=== PATIENT | female | born 1985 | race Caucasian/White ===

== ENCOUNTER 2019-02-21 18:57 | Emergency (ER) | payer OTHER | END 2019-02-21 22:17 | disposition home or self-care (01) | LOC: JER 18:57 ==

== ENCOUNTER 2019-05-03 09:39 | Emergency (ER) | payer OTHER ==
[2019-05-03 09:52] VITALS: BP 111/56; PULSE 81; TEMP 98.2; BMI 25.8
--- NOTE | 2019-05-03 10:44 | PDOC ---
History of Present Illness - General Chief Complaint: Diarrhea Stated Complaint: 22 W PREG/ BLACK STOOL Time Seen by Provider: 05/03/19 09:57 History Source: Patient Exam Limitations: Language Barrier ([employer] services manager ID#[id number]) Past History - Past Medical History Allergies/Adverse Reactions: Allergies Allergy/AdvReac Type Severity Reaction Status Date / Time ibuprofen Allergy Verified 02/21/19 19:04 Home Medications: Ambulatory Orders Ferrous Sulfate [Iron] 325 mg PO DAILY 05/03/19 Pnv No.95/Ferrous Fum/Folic AC [ Vitamin Tablet] 1 each PO DAILY COPD: No - Immunization History Immunization Up to Date: Yes - Suicide/Smoking/Psychosocial Hx Smoking History: Never smoked Information on smoking cessation initiated: No Hx Alcohol Use: No Drug/Substance Use Hx: No *Physical Exam - Vital Signs Last Vital Signs Temp Pulse Resp BP Pulse Ox 98.2 F 81 16 111/56 L 99 05/03/19 09:47 05/03/19 09:47 05/03/19 09:47 05/03/19 09:47 05/03/19 09:47 - Physical Exam General Appearance: No: Apparent Distress Respiratory/Chest: positive: Lungs Clear, Normal Breath Sounds. negative: Respiratory Distress Cardiovascular: positive: Regular Rhythm, Regular Rate, S1, S2. negative: Murmur Gastrointestinal/Abdominal: positive: Soft, Other (gravid uterus). negative: Tender Neurologic: positive: Alert, Normal Mood/Affect Medical Decision Making - Medical Decision Making 34 y/o F currently 21 weeks presents with intermittent dark/black stools for around 3 months since starting her iron pills. stools are not always black; for instance, yesterday, her stools were normal in color. was never told iron pills could change color of stools. never told her PMD or OB doctor (Dr. Sincere Pratt) because she thought it was not nothing to worry about. However, her sister told her to get evaluated. Last OB check up was yesterday. Also with slight lower abdominal discomfort x 3 days. Denies fever, sob, cp, vomiting, vaginal bleeding, constipation, diarrhea , bloody stools. Black stool likely related to use of iron pills Patient explained Attempted to reach patient's OB, but unable to reach Will sent to L&D for FHR 05/03/19 10:38 *DC/Admit/Observation/Transfer Diagnosis at time of Disposition: Black stools - Discharge Dispostion Disposition: HOME Condition at time of disposition: Stable Decision to Admit order: No - Referrals - Patient Instructions Additional Instructions: Thank you for choosing [facility]. It was a pleasure taking care of you. Likely your black stools are related to your iron pills Continue follow-up with your [employer] OPERATOR HELPER and primary care doctor Return to the Emergency Department if your symptoms worsen or persist or have other concerning symptoms. - Post Discharge Activity
== END 2019-05-03 11:04 | disposition home or self-care (01) ==
LOC: JERFT 09:39
DX: O26.892 Other specified pregnancy related conditions, second trimester (principal); Z3A.21 21 weeks gestation of pregnancy; R19.5 Other fecal abnormalities
CPT/HCPCS: 99281-25

== ENCOUNTER 2019-06-07 07:47 | Emergency (ER) | payer OTHER ==
[2019-06-07 07:54] VITALS: BMI 27.4
[2019-06-07] MEDS ORDERED: ACETAMINOPHEN 1000 MG/100 ML VIAL (NON FORMULARY) IVPB ONE (08:01)
[2019-06-07] MEDS ORDERED: ACETAMINOPHEN INJECTION 100 ML IVPB ONE (08:16)
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
[2019-06-07 09:12] VITALS: BP 128/64; PULSE 90; TEMP 98.2
== END 2019-06-07 10:35 | disposition home or self-care (01) ==
LOC: JER 07:47
PROC: 3E033NZ Introduction of Analgesics, Hypnotics, Sedatives into Peripheral Vein, Percutaneous Approach (ICD-10-PCS; principal; 2019-06-07)
DX: O26.892 Other specified pregnancy related conditions, second trimester (principal); R10.9 Unspecified abdominal pain; M54.5 Low back pain; V43.64XA Car passenger injured in collision with van in traffic accident, initial encounter; Y92.414 Local residential or business street as the place of occurrence of the external cause; Y93.89 Activity, other specified; Y99.8 Other external cause status; Z3A.26 26 weeks gestation of pregnancy
CPT/HCPCS: 99282-25; J0131

== ENCOUNTER 2022-06-06 19:46 | Emergency (ER) | payer OTHER ==
[2022-06-06 20:08] VITALS: BP 121/78; PULSE 72; RESP 19; TEMP 98.6; BMI 25.6
[2022-06-06] MEDS ORDERED: DIPHTH,PERTUSS(ACELL),TET 0.5 ML DISP.SYRIN IM ONE ×2 (21:32→22:24)
[2022-06-06] MEDS ORDERED: ACETAMINOPHEN 1000 MG/100 ML BAG IVPB ONE (21:32)
[2022-06-06] MEDS ORDERED: ACETAMINOPHEN INJECTION 100 ML IVPB ONE (21:49)
== END 2022-06-06 23:45 | disposition home or self-care (01) ==
LOC: JER 19:46
PROC: 3E0333Z Introduction of Anti-inflammatory into Peripheral Vein, Percutaneous Approach (ICD-10-PCS; principal; 2022-06-06)
PROC: 3E0234Z Introduction of Serum, Toxoid and Vaccine into Muscle, Percutaneous Approach (ICD-10-PCS; 2022-06-06)
DX: S91.331A Puncture wound without foreign body, right foot, initial encounter (principal); W45.0XXA Nail entering through skin, initial encounter
CPT/HCPCS: 36415; 84703; 90471; 90715; 93005; 93010; 96374; 99284-25

== ENCOUNTER 2022-10-31 16:48 | Emergency (ER) | payer OTHER ==
[2022-10-31 17:05] VITALS: BP 118/74; PULSE 86; RESP 18; TEMP 98.1; BMI 25.0
[2022-10-31] MEDS ORDERED: DEXAMETHASONE SOD PHOSPHATE 10 MG/1 ML VIAL IM ONE (19:48)
[2022-10-31] MEDS ORDERED: DEXAMETHASONE SOD PHOSPHATE 10 MG/1 ML VIAL ONE (19:55)
[2022-10-31 20:32] LABS: THROAT:GRP A STREP NOT DETECTED (NOTDETECTED)
== END 2022-10-31 20:33 | disposition home or self-care (01) ==
LOC: JERFT 16:48 → JER 16:48 → JERFT 20:33
PROC: 3E023GC Introduction of Other Therapeutic Substance into Muscle, Percutaneous Approach (ICD-10-PCS; principal; 2022-10-31)
DX: R07.0 Pain in throat (principal)
CPT/HCPCS: 0241U-QW; 87651; 99284-25; J1100

== ENCOUNTER 2022-11-04 20:36 | Emergency (ER) | payer OTHER ==
[2022-11-04 20:47] VITALS: BP 103/69; PULSE 83; RESP 18; TEMP 98.2; BMI 24.8
[2022-11-04] MEDS ORDERED: ACETAMINOPHEN 500 MG TABLET (FP) PO ONE (22:19)
[2022-11-04] MEDS ORDERED: ACETAMINOPHEN 500 MG TABLET (FP) ONE (22:24)
[2022-11-04] MEDS ORDERED: LIDOCAINE VISCOUS 2% ORAL/TOP 15 ML UNIT-DOSE CUP MM ONE (23:04)
[2022-11-04] MEDS ORDERED: DEXAMETHASONE SOD PHOSPHATE 10 MG/1 ML VIAL IM ONE (23:04)
[2022-11-04] MEDS ORDERED: DEXAMETHASONE SOD PHOSPHATE 10 MG/1 ML VIAL ONE (23:10)
[2022-11-04] MEDS ORDERED: LIDOCAINE VISCOUS 2% ORAL/TOP 15 ML UNIT-DOSE CUP ONE (23:11)
== END 2022-11-04 23:16 | disposition home or self-care (01) ==
LOC: JER 20:36
PROC: 3E0233Z Introduction of Anti-inflammatory into Muscle, Percutaneous Approach (ICD-10-PCS; principal; 2022-11-04)
DX: J02.9 Acute pharyngitis, unspecified (principal)
CPT/HCPCS: 0241U-QW; 87651; 99284-25; J1100